=== PATIENT | male | born 1985 | race Caucasian/White ===

== ENCOUNTER 2024-01-13 09:36 | Inpatient (IN) | payer BC ==
[~2024-01-13] VITALS: Ht 185.4 cm; Wt 95.3 kg
[2024-01-13 09:59] LABS: BASOPHILS % 0.5 % (0.0-1.0); EOSINOPHILS # (AUTO) 0.2 (0.0-0.4); EOSINOPHILS % 1.8 % (0.0-6.0); HEMATOCRIT 40.4 % (38.2-49.6); HEMOGLOBIN 14.1 g/dL (14.0-18.0); LYMPHOCYTES # (AUTO) 1.8 (1.0-3.2); LYMPHOCYTES % 21.9 % (18.0-39.1); MEAN CORPUSCULAR HEMOGLOBIN 30.6 pg (28-32); MEAN CORPUSCULAR HGB CONC 34.9 g/dL (31-35); MEAN CORPUSCULAR VOLUME 87.6 fL (81-99); MONOCYTES # (AUTO) 0.8 (0.2-0.8); MONOCYTES % 9.8 % (4.4-11.3); NEUTROPHILS # (AUTO) 5.4 (2.1-6.9); NEUTROPHILS % 65.4 % (38.7-80.0); PLATELET COUNT 398 x10e3/uL (140-360); RED BLOOD COUNT 4.61 x10e6/uL (4.3-5.7); RED CELL DISTRIBUTION WIDTH 12.8 % (11.7-14.4); WHITE BLOOD COUNT 8.27 x10e3/uL (4.8-10.8)
[2024-01-13] MEDS: SODIUM CHLORIDE 0.9% 1000ML 1,000 ML IV STA ×2 (09:59→10:00)
[2024-01-13] MEDS: ONDANSETRON HCL INJ 2MG/ML 2ML 2 MG/ML VIAL IV STA (09:59)
[2024-01-13 10:03] LABS: CLARITY,URINE SL CLOUDY (CLEAR); COLOR,URINE YELLOW (YELLOW)
[2024-01-13 10:04] LABS: BILIRUBIN,URINE NEGATIVE (NEGATIVE); GLUCOSE, URINE NEGATIVE (NEGATIVE); KETONES,URINE NEGATIVE (NEGATIVE); LEUKOCYTE ESTERASE ,URINE NEGATIVE (NEGATIVE); NITRITE,URINE NEGATIVE (NEGATIVE); PH,URINE 5.5 (5 - 7); PROTEIN,URINE DIPSTICK TRACE (NEGATIVE); URINE UROBILINOGEN 0.2 mg/dL (0.2 - 1)
[2024-01-13 10:23] LABS: BACTERIA,URINE MODERATE /HPF; EPITHELIAL CELLS,URINE FEW /LPF; RBC,URINE 0-5 /HPF (0-5)
[2024-01-13 10:26] LABS: INR 0.95; PROTHROMBIN TIME 13.4 seconds (11.9-14.5)
[2024-01-13 10:32] LABS: ALANINE AMINOTRANSFERASE 35 IU/L (0-55); ALBUMIN 4.8 g/dL (3.5-5.0); ALBUMIN/GLOBULIN RATIO 1.4 (0.8-2.0); ALKALINE PHOSPHATASE 78 IU/L (40-150); ANION GAP 17.4 mmol/L (8-16); BLOOD UREA NITROGEN 33 mg/dL (7-26); BUN/CREATININE RATIO 17 (6-25); CALCIUM 9.8 mg/dL (8.4-10.2); CARBON DIOXIDE 21 mmol/L (22-29); CHLORIDE 99 mmol/L (98-107); CREATINE KINASE 764 IU/L (30-200); CREATININE, SERUM 1.99 mg/dL (0.72-1.25); EST GLOMERULAR FILTRATION RATE 44 ML/MIN (>=60); GLUCOSE 95 mg/dL (74-118); MAGNESIUM 2.6 MG/DL (1.3-2.1); SODIUM 131 mmol/L (136-145); TOTAL PROTEIN 8.2 g/dL (6.5-8.1)
[2024-01-13 10:34] LABS: BILIRUBIN,TOTAL 0.7 mg/dL (0.2-1.2)
[2024-01-13 10:36] LABS: POTASSIUM 6.4 mmol/L (3.5-5.1)
[2024-01-13 10:44] LABS: TROPONIN I < 0.001 ng/mL (0-0.300)
[2024-01-13] MEDS: CALCIUM GLUC 1 G/50 ML NACL 50 ML IV ONE (11:12)
[2024-01-13 11:15] LABS: ANION GAP 14.7 mmol/L (8-16); CALCIUM 8.8 mg/dL (8.4-10.2); CREATININE, SERUM 1.73 mg/dL (0.72-1.25)
[2024-01-13] MEDS ORDERED: SODIUM BICARBONATE 8.4% SYRING 50 ML ONE (11:15)
[2024-01-13] MEDS ORDERED: CALCIUM GLUC 1 G/50 ML NACL 50 ML IV ONE (11:15)
[2024-01-13] MEDS: SODIUM BICARBONATE 8.4% INJ 50 ML SYR IV STA (11:15)
[2024-01-13 11:16] LABS: POTASSIUM 6.7 mmol/L (3.5-5.1)
[2024-01-13] MEDS: DEXTROSE 50% SYRINGE 50 ML IV STA (11:20)
[2024-01-13] MEDS: INSULIN REGULAR, HUMAN 100 UNIT/1 ML IV ONE (11:21)
[2024-01-13] MEDS ORDERED: ONDANSETRON HCL INJ 2MG/ML 2ML 2 MG/ML VIAL IV PRN (12:45)
[2024-01-13 13:17] VITALS: PULSE 71; RESP 16; TEMP 97.5
[2024-01-13] MEDS: SODIUM CHLORIDE 0.9% 1000ML 1,000 ML IV SCH (13:19)
[2024-01-13] MEDS: SOD POLYSTYRENE SULFONATE SUSP 15 GM/60 ML BTL PO ONE (13:19)
[2024-01-13] MEDS ORDERED: LISINOPRIL40 MG PO (14:44)
[2024-01-13] MEDS ORDERED: VENLAFAXINE HCL25 MG PO (14:44)
[2024-01-13] MEDS ORDERED: AMLODIPINE BESY10 MG PO (14:44)
[2024-01-13] MEDS ORDERED: CYCLOBENZAPRINE10 MG PO (14:44)
[2024-01-13] MEDS ORDERED: ATORVASTATIN CA10 MG PO (14:44)
[2024-01-13] MEDS ORDERED: PANTOPRAZOLE SO40 MG PO (14:44)
[2024-01-13 14:46] VITALS: BP 154/60; O2SAT 100
[2024-01-13 15:16] VITALS: BP 117/60; PULSE 58; RESP 18; TEMP 97.5; O2SAT 99
[2024-01-13] MEDS ORDERED: DOCUSATE SODIU100 MG PO (18:17)
[2024-01-13 20:00] VITALS: BP 113/63; PULSE 70; RESP 18; TEMP 98; O2SAT 100
[2024-01-13] MEDS: FAMOTIDINE 20 MG/2 ML VIAL IV SCH (20:28)
[2024-01-13] MEDS: CYCLOBENZAPRINE HCL 10 MG TAB PO SCH (21:59)
[2024-01-13] MEDS: ATORVASTATIN 10 MG TAB PO SCH (22:00)
[2024-01-13 22:15] VITALS: BP 113/63; PULSE 70; RESP 18; TEMP 98; O2SAT 100
[2024-01-14] VITALS: BP 111/70; PULSE 71; RESP 18; TEMP 98; O2SAT 99
[2024-01-14 04:00] VITALS: BP 119/62; PULSE 74; RESP 18; TEMP 97.8; O2SAT 99
[2024-01-14 05:41] LABS: BASOPHILS # (AUTO) 0.1 (0.0-0.1); BASOPHILS % 0.7 % (0.0-1.0); EOSINOPHILS # (AUTO) 0.2 (0.0-0.4); HEMATOCRIT 33.9 % (38.2-49.6); HEMOGLOBIN 11.4 g/dL (14.0-18.0); LYMPHOCYTES # (AUTO) 2.1 (1.0-3.2); LYMPHOCYTES % 29.6 % (18.0-39.1); MEAN CORPUSCULAR HEMOGLOBIN 30.3 pg (28-32); MEAN CORPUSCULAR HGB CONC 33.6 g/dL (31-35); MEAN CORPUSCULAR VOLUME 90.2 fL (81-99); MONOCYTES # (AUTO) 0.7 (0.2-0.8); MONOCYTES % 9.5 % (4.4-11.3); NEUTROPHILS # (AUTO) 4.1 (2.1-6.9); NEUTROPHILS % 56.8 % (38.7-80.0); PLATELET COUNT 295 x10e3/uL (140-360); RED BLOOD COUNT 3.76 x10e6/uL (4.3-5.7); WHITE BLOOD COUNT 7.23 x10e3/uL (4.8-10.8)
[2024-01-14 06:13] LABS: ALBUMIN 3.6 g/dL (3.5-5.0); ALBUMIN/GLOBULIN RATIO 1.4 (0.8-2.0); CALCIUM 9.1 mg/dL (8.4-10.2); CHOL/HDL RATIO 4.1 (3.9-4.7); CREATININE, SERUM 1.11 mg/dL (0.72-1.25); TOTAL PROTEIN 6.2 g/dL (6.5-8.1)
[2024-01-14] MEDS ORDERED: ACETAMINOPHEN 325 MG TAB PO PRN (06:45)
[2024-01-14 07:33] VITALS: BP 125/75; PULSE 68; RESP 17; TEMP 98; O2SAT 100
[2024-01-14 08:21] LABS: ANION GAP 14.7 mmol/L (8-16); BILIRUBIN,TOTAL 0.2 mg/dL (0.2-1.2)
[2024-01-14 08:25] LABS: POTASSIUM 6.7 mmol/L (3.5-5.1)
[2024-01-14] MEDS ORDERED: INSULIN LISPRO 100 UNIT/1 ML 3ML VIAL SQ STA (08:37)
[2024-01-14 08:39] VITALS: BP 125/75; PULSE 68; RESP 17; TEMP 98; O2SAT 100
[2024-01-14] MEDS: VENLAFAXINE HCL 25 MG PO SCH (09:00)
[2024-01-14] MEDS: SOD POLYSTYRENE SULFONATE SUSP 15 GM/60 ML BTL PO ONE (09:05)
[2024-01-14 09:07] LABS: CREATINE KINASE 392 IU/L (30-200)
[2024-01-14 09:10] LABS: TROPONIN I < 0.001 ng/mL (0-0.300)
[2024-01-14] MEDS: INSULIN REGULAR, HUMAN 100 UNIT/1 ML IV ONE (09:54)
[2024-01-14] MEDS: DEXTROSE 50% SYRINGE 50 ML IV ONE (09:54)
[2024-01-14] MEDS ORDERED: DOCUSATE SODIUM 100 MG CAP PO PRN (10:30)
[2024-01-14] MEDS ORDERED: SIMETHICONE 80 MG CHEW PO PRN (10:30)
[2024-01-14] MEDS ORDERED: METOPROLOL TARTRATE INJ 1 MG/ML VIAL IV PRN (10:30)
[2024-01-14] MEDS ORDERED: MELATONIN 3 MG TAB PO PRN (10:30)
[2024-01-14] MEDS ORDERED: ALBUTEROL/IPRATROPIUM 3 ML NEB NEB PRN (10:30)
[2024-01-14] MEDS: CALCIUM GLUC 1 G/50 ML NACL 50 ML IV SCH (10:45)
[2024-01-14 11:37] VITALS: BP 116/59; PULSE 77; RESP 20; TEMP 98.5; O2SAT 100
[2024-01-14] MEDS ORDERED: ONDANSETRON HCL 4 MG ORAL DISINTEGRATING TAB PO PRN (13:30)
[2024-01-14 16:04] VITALS: BP 116/61; PULSE 70; RESP 16; TEMP 98.5; O2SAT 100
[2024-01-14 16:05] LABS: CREATINE KINASE 309 IU/L (30-200)
[2024-01-14 16:14] LABS: TROPONIN I < 0.001 ng/mL (0-0.300)
[2024-01-14] MEDS ORDERED: ENOXAPARIN SOD INJ 40 MG/0.4 ML SYR SC SCH (17:00)
[2024-01-14] MEDS ORDERED: AMLODIPINE BESYLATE 5 MG TAB PO SCH (21:00)
[2024-01-15] MEDS ORDERED: PANTOPRAZOLE SOD 40 MG TABEC PO SCH (09:00)
== END 2024-01-14 17:31 | disposition home or self-care (01) | DRG 683 ==
LOC: ER 09:46 → ERHOLD 12:43 → MED/SURG2 13:40
PROVIDERS: ADMIT Internal Medicine; ATTEND Internal Medicine
DX: N17.9 Acute kidney failure, unspecified (principal); E87.1 Hypo-osmolality and hyponatremia; M62.82 Rhabdomyolysis; E87.20 Acidosis, unspecified; E87.5 Hyperkalemia; K21.9 Gastro-esophageal reflux disease without esophagitis; I10 Essential (primary) hypertension; E78.5 Hyperlipidemia, unspecified; F32.A Depression, unspecified; R74.01 Elevation of levels of liver transaminase levels; Z11.52 Encounter for screening for COVID-19
CPT/HCPCS: 36415; 80048; 80053; 80061; 81001; 82550; 82948; 83735; 84132; 84484; 85025; 85610; 87086; 87186; 93005; 99284; J2405; J2470; J7030; J7799; U0002